=== PATIENT | female | born 1985 | race Caucasian/White ===

== ENCOUNTER 2018-01-08 08:44 | Outpatient (CLI) | payer MEDICAID | END 2018-01-08 08:45 | disposition home or self-care (01) | LOC: BICMAMMO 08:44 → EDSTATUS 09:30 | PROVIDERS: ATTEND Nurse Practitioner Family | DX: N64.4 Mastodynia (principal) | CPT/HCPCS: 77066; G0279 ==

== ENCOUNTER 2018-03-03 13:33 | Outpatient (CLI) | payer MEDICAID | END 2018-03-03 13:34 | disposition home or self-care (01) | LOC: BICRAD 13:33 | DX: K59.00 Constipation, unspecified (principal) | CPT/HCPCS: 74018 ==

== ENCOUNTER 2019-08-23 10:46 | Outpatient (CLI) | payer OTHER ==
--- NOTE | 2019-08-23 12:20 | ULT ---
SONOGRAM ABDOMEN COMPLETE: Date: 08/23/19 HISTORY: Upper abdomen pain. FINDINGS: Gallbladder has a normal appearance. Common duct is 0.5 cm. Liver is unremarkable without focal mass or intrahepatic biliary dilatation. No free fluid. There is thinning of the cortex of each kidney. No hydronephrosis. The spleen and visualized portions of the abdominal aorta, IVC, and pancreas are unremarkable. IMPRESSION: 1. No acute abnormalities are demonstrated. 2. Bilateral renal cortical atrophy. POS: TPC
== END 2019-08-23 10:47 | disposition home or self-care (01) ==
LOC: SCSULT 10:46
PROVIDERS: ATTEND Internal Medicine Gastroenterology
DX: K21.9 Gastro-esophageal reflux disease without esophagitis (principal); R63.5 Abnormal weight gain; R11.0 Nausea; K59.00 Constipation, unspecified; N26.1 Atrophy of kidney (terminal)
CPT/HCPCS: 93975

== ENCOUNTER 2025-05-17 16:25 | Outpatient (CLI) | payer BC | END 2025-05-17 16:26 | disposition home or self-care (01) | LOC: SCSRAD 16:25 | PROVIDERS: ATTEND Nurse Practitioner Family | DX: S99.921A Unspecified injury of right foot, initial encounter (principal) ==